=== PATIENT | female | born 1995 | race Caucasian/White ===

== ENCOUNTER 2016-09-19 15:52 | Emergency (ER) | payer OTHER ==
[~2016-09-19] VITALS: Ht 165.1 cm; Wt 58.1 kg
[2016-09-19] MEDS ORDERED: SODIUM CHLORIDE FLUSH 10ML SYR IVF ONE (16:30)
[2016-09-19] MEDS ORDERED: ONDANSETRON 2MG/ML, 2ML IVPush ONE (16:30)
[2016-09-19] MEDS ORDERED: FAMOTIDINE 20 MG/2 ML IVP ONE (16:30)
[2016-09-19] MEDS ORDERED: SODIUM CHLORIDE 0.9% 1,000ML IVBOLUS ONE (16:30)
[2016-09-19 16:54] LABS: BLOOD UREA NITROGEN 14 mg/dL (7-18)
[2016-09-19 16:59] LABS: ASPARTATE AMINO TRANSFERASE 29 U/L (15-37)
[2016-09-19] MEDS ORDERED: ONDANSETRON 2MG/ML, 2ML ONE (19:47)
[2016-09-19] MEDS ORDERED: FAMOTIDINE 20 MG/2 ML ONE (19:47)
[2016-09-19 21:22] VITALS: BP 111/60
== END 2016-09-19 21:25 | disposition home or self-care (01) ==
LOC: ED 21:00
DX: G43.A1 Cyclical vomiting, in migraine, intractable (principal); R19.7 Diarrhea, unspecified
CPT/HCPCS: 36415; 80053; 81001; 83690; 84703; 85025; 87086; 96374; 96375; 99284; J2405; J7030; S0028